=== PATIENT | female | born 1985 | race Caucasian/White ===

== ENCOUNTER 2020-11-13 14:47 | Emergency (ER) | payer OTHER, BC ==
[2020-11-13 17:11] LABS: Bilirubin Neg (Negative); Blood, Urine Negative (Negative); Glucose, Urine (Dipstick) Normal (Negative); Ketone, Urine 5 mg/dL (Negative); Leukocyte 25 (Negative); Nitrite Negative (Negative); Protein, Urine (Dipstick) Negative (Neg-Trace); Urobilinogen Normal mg/dL (Less than 2)
[2020-11-13 17:14] LABS: Clarity Clear (Clear)
[2020-11-13 17:18] LABS: RBC/HPF None Seen HPF (0-3); Squamous Epithelial 0-3 HPF (0-3); WBC/HPF 0-3 HPF (0-3)
[2020-11-13 17:19] LABS: Bacteria/HPF 3+ HPF (None Seen)
== END 2020-11-13 18:13 | disposition home or self-care (01) ==
LOC: CSHERS 14:47
DX: O23.41 Unspecified infection of urinary tract in pregnancy, first trimester (principal); Z3A.01 Less than 8 weeks gestation of pregnancy; V89.2XXA Person injured in unspecified motor-vehicle accident, traffic, initial encounter
CPT/HCPCS: 81003; 81015; 84702; 87086

== ENCOUNTER 2021-12-30 14:58 | Outpatient (CLI) | payer BC | END 2021-12-30 14:59 | disposition home or self-care (01) | LOC: CSHMAMMO 14:58 | PROVIDERS: ATTEND Obstetrics & Gynecology | DX: Z12.31 Encounter for screening mammogram for malignant neoplasm of breast (principal); Z80.3 Family history of malignant neoplasm of breast | CPT/HCPCS: 77063; 77067 ==

== ENCOUNTER 2025-01-29 12:52 | Outpatient (CLI) | payer BC | END 2025-01-29 12:53 | disposition home or self-care (01) | LOC: CSHMRI 12:52 | PROVIDERS: ATTEND Family Medicine | DX: R20.0 Anesthesia of skin (principal); M48.02 Spinal stenosis, cervical region | CPT/HCPCS: 72141 ==

== ENCOUNTER 2025-03-08 08:43 | Outpatient (CLI) | payer BC | END 2025-03-08 08:44 | disposition home or self-care (01) | LOC: CSHDTY/OP 08:43 | PROVIDERS: ATTEND Surgery | DX: Z71.3 Dietary counseling and surveillance (principal); E66.01 Morbid (severe) obesity due to excess calories | CPT/HCPCS: 97802 ==